=== PATIENT | female | born 1960 | race American Indian/Alaskan Native ===

== ENCOUNTER 2017-12-17 12:28 | Outpatient (CLI) | payer OTHER ==
[2017-12-17] MEDS ORDERED: PROVENTIL IH ONE (13:01)
== END 2017-12-17 12:29 | disposition home or self-care (01) ==
LOC: PF 12:28
PROVIDERS: ATTEND Internal Medicine
DX: Z02.71 Encounter for disability determination (principal); I10 Essential (primary) hypertension
CPT/HCPCS: 94060; 94640